=== PATIENT | female | born 1990 | race Two or more races ===

== ENCOUNTER 2019-10-05 23:53 | Emergency (ER) | payer MEDICAID, OTHER ==
[~2019-10-05] VITALS: Ht 160 cm; Wt 54.4 kg
[2019-10-06] MEDS ORDERED: LIDOCAINE VISCOUS 2% UD 15 ML UDC ONE (00:05)
[2019-10-06] MEDS ORDERED: MAG HYDROX/AL HYDROX/SIMETH 30 ML UDC ONE (00:05)
[2019-10-06] MEDS ORDERED: LIDOCAINE VISCOUS 2% UD 15 ML UDC MM ONE (00:30)
[2019-10-06] MEDS ORDERED: MAG HYDROX/AL HYDROX/SIMETH 30 ML UDC PO ONE (00:30)
--- NOTE | 2019-10-06 00:35 | NUR ---
PT CAME TO ER BED 2 C/O SHARP EPIGASTRIC PAIN SINCE 2199 OF 10/05/2019. PT STATES SHE HAD OYSTER AT A [employer] AND FELT PAIN AFTER LEAVING THE [employer]. AAOX4. NO SOB. BREATHING EVENLY AND UNLABORED ON ROOM. CONNECTED TO MONITOR.
--- NOTE | 2019-10-06 00:41 | NUR ---
Patient discharged to home in stable condition. Written and verbal after care instructions given. Patient verbalizes understanding of instruction.
[2019-10-06 00:42] VITALS: BP 94/48
== END 2019-10-06 00:42 | disposition home or self-care (01) ==
LOC: ER 23:55
DX: K21.9 Gastro-esophageal reflux disease without esophagitis (principal); F17.200 Nicotine dependence, unspecified, uncomplicated

== ENCOUNTER 2023-10-01 02:44 | Emergency (ER) | payer OTHER ==
[~2023-10-01] VITALS: Ht 160 cm; Wt 54.4 kg
[2023-10-01 03:23] VITALS: TEMP 98
[2023-10-01] MEDS ORDERED: LIDOCAINE 1%-EPI 1:100,000 20 ML VIAL ONE (03:59)
[2023-10-01] MEDS: TDAP [DIPH/PERTUSSIS/TET] 0.5 ML VIAL IM ONE (04:37)
[2023-10-01 04:41] VITALS: BP 105/66; O2SAT 97
== END 2023-10-01 04:42 | disposition home or self-care (01) ==
LOC: ER 02:46
DX: S01.111A Laceration without foreign body of right eyelid and periocular area, initial encounter (principal); F17.200 Nicotine dependence, unspecified, uncomplicated; Z98.890 Other specified postprocedural states; W18.39XA Other fall on same level, initial encounter; Y93.89 Activity, other specified; Y92.89 Other specified places as the place of occurrence of the external cause; Y99.8 Other external cause status
CPT/HCPCS: 12011; 99282; J3490

== ENCOUNTER 2024-03-16 15:51 | Emergency (ER) | payer OTHER ==
[~2024-03-16] VITALS: Ht 157.5 cm; Wt 56.2 kg
[2024-03-16] MEDS ORDERED: CEPH-570 PO (17:13)
[2024-03-16 17:42] VITALS: BP 128/72; TEMP 98; O2SAT 100
== END 2024-03-16 17:42 | disposition home or self-care (01) ==
LOC: ER 16:01
DX: T81.31XA Disruption of external operation (surgical) wound, not elsewhere classified, initial encounter (principal); F17.200 Nicotine dependence, unspecified, uncomplicated; Y83.2 Surgical operation with anastomosis, bypass or graft as the cause of abnormal reaction of the patient, or of later complication, without mention of misadventure at the time of the procedure; Y92.89 Other specified places as the place of occurrence of the external cause